=== PATIENT | female | born 1980 | race Caucasian/White ===

== ENCOUNTER 2016-04-25 07:03 | Emergency (ER) | payer OTHER ==
[~2016-04-25] VITALS: Ht 157.5 cm; Wt 97.5 kg
[~2016-04-25 07:03] MED LIST: CEFP250T2 PO; KETO75CA PO; NITR100C44 PO
--- OUTSIDE RECORDS SUMMARY | 2016-04-25 07:09 | XMS REPORT | Continuity of Care Document ---
Author Author [facility] Organization [facility] Address Unknown Phone Unavailable Allergies Active Description Code Type Severity Reaction Onset Reported/Identified Relationship to Patient Clinical Status Yes No Known Drug Allergies [id number] Drug Allergy Unknown N/ A 07/14/2014 Medications Problems Date Dx Coded Attending Type Code Diagnosis Diagnosed By 07/14/2014 VALERIE MARIEE DO Ot 599.0 URIN TRACT INFECTION NOS 07/14/2014 VALERIE MARIEE DO Ot 620.2 OVARIAN CYST NEC/NOS 07/14/2014 VALERIE MARIEE DO Ot 625.9 FEM GENITAL SYMPTOMS NOS 06/07/2015 THA STANTNO NATURAL GAS TECHNICIAN Ot R06.00 06/07/2015 THA STANTON NATURAL GAS TECHNICIAN Ot R06.2 06/08/2015 THA STANTON NATURAL GAS TECHNICIAN Ot R06.00 06/08/2015 THA STANTON NATURAL GAS TECHNICIAN Ot R06.2 07/21/2015 THA STANTON NATURAL GAS TECHNICIAN Ot R06.00 DYSPNEA, UNSPECIFIED 07/21/2015 THA STANTON NATURAL GAS TECHNICIAN Ot R06.2 WHEEZING 04/25/2016 THA STANTON NATURAL GAS TECHNICIAN Ot R06.00 DYSPNEA, UNSPECIFIED 04/25/2016 THA STANTON NATURAL GAS TECHNICIAN Ot R06.2 WHEEZING 04/25/2016 THA STANTON NATURAL GAS TECHNICIAN Ot R06.00 DYSPNEA, UNSPECIFIED 04/25/2016 THA STANTON NATURAL GAS TECHNICIAN Ot R06.2 WHEEZING Procedures Results Encounters ACCT No. Visit Date/Time Discharge Status Pt. Type Provider Facility Loc./Unit Complaint [id number] 07/14/2014 17:59:00 2014 23:25:00 DIS Emergency VALERIE MARIEE DO [facility] ER L SIDE PAIN [id number] 04/25/2016 07:05:00 ACT Emergency KELVIN BRUNSON MD [facility] ER BACK PAIN [id number] 06/07/2015 06:49:00 ACT Outpatient THA STANTON APRN [facility] RT WHEEZING,DYSPHAGIA [id number] 05/15/2015 16:07:00 ACT Outpatient THA STANTON APRN [facility] RAD DYSPNEA,WHEEZING
[2016-04-25] MEDS ORDERED: COLE625T9 PO (07:20)
[2016-04-25] MEDS ORDERED: METF1000 PO (07:20)
[2016-04-25] MEDS ORDERED: TEMA15CA6 PO (07:20)
[2016-04-25] MEDS ORDERED: BIRTH CONTROL (07:20)
[2016-04-25] MEDS ORDERED: OMEP20TA33 PO (07:20)
[2016-04-25] MEDS ORDERED: PROP80CA4 PO (07:20)
--- NOTE | 2016-04-25 07:39 | ED Back Pain ---
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 CC OF LOW BACK PAIN BETWEEN HER HIPS, STATES NO HX OF BACK PAIN. 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 She states that it is bilateral lower but right greater than left. Denies bowel or bladder incontinence, weakness when walking or numbness between her legs. Timing/Duration: 4-6 Hours Severity: Moderate Pain/Injury Location: Back Radiation: Buttocks (right hip.) Associated Symptoms: muscle spasmsNo weakness, No numbness in legs/feet, No tingling in legs/feet, No sensory/motor loss, lower back painNo loss of bladder control, No loss of bowel control Allergies and Home Medications Allergies Coded Allergies: No Known Drug Allergies (Unverified , 07/14/14) Home Medications (Reported) Colesevelam HCl 625 Mg Tablet 1,250 MG PO BID (Reported) Metformin HCl 1,000 Mg Tablet 1,000 MG PO BID (Reported) Omeprazole Magnesium 20 Mg Tablet.dr 20 MG PO DAILY (Reported) Propranolol HCl 80 Mg Cap.sa.24h 80 MG PO DAILY (Reported) Temazepam 15 Mg Capsule 15 MG PO HS (Reported) Constitutional: see HPINo chills, No fever Respiratory: no symptoms reported Cardiovascular: no symptoms reported Gastrointestinal: no symptoms reported Genitourinary: no symptoms reported Musculoskeletal: see HPI Psychiatric/Neurological: See HPI Past Zkzzolw-Hkfwqz-Kdmyyl Hx Patient Social History Alcohol Use: Rarely Uses Recreational Drug Use: No Smoking Status: Never a Smoker 2nd Hand Smoke Exposure: No Recent Foreign Travel: No Contact w/Someone Who Travel: No Recent Infectious Disease Expo: No Recent Hopitalizations: No Immunizations Up To Date Date of Influenza Vaccine: Dec 20, 2015 Seasonal Allergies Seasonal Allergies: No Surgeries HX Surgeries: Yes (CSection, Tonsillectomy, Gall Bladder, DENTAL) Surgeries: Section, Gallbladder, Tonsillectomy Respiratory Hx Respiratory Disorders: No Cardiovascular Hx Cardiac Disorders: No Neurological Hx Neurological Disorders: No Reproductive System : No (SPOTTING, JUST STARTED CONTROL) Genitourinary Hx Genitourinary Disorders: No Gastrointestinal Hx Gastrointestinal Disorders: Yes Gastrointestinal Disorders: Gall Bladder Disease Musculoskeletal Hx Musculoskeletal Disorders: No Endocrine Hx Endocrine Disorders: No HEENT HX ENT Disorders: No Cancer Hx Cancer: No Psychosocial Hx Psychiatric Problems: No Integumentary HX Skin/Integumentary Disorder: No Blood Transfusions Hx Blood Disorders: No Reviewed Nursing Assessment Reviewed/Agree w Nursing PMH: Yes Family Medical History Significant Family History: No Pertinent Family Hx Physical Exam Vital Signs Vital Sign - Last 12Hours 04/25/16 07:09 Temp 97.5 Pulse 74 Resp 20 B/P 128/73 Pulse Ox 98 O2 Delivery Room Air Capillary Refill : Less Than 3 Seconds General Appearance: No Apparent Distress WD/WN Cardiovascular: Regular Rate, Rhythm No Murmur Respiratory: Lungs Clear Normal Breath Sounds Back: Muscle SpasmNo Vertebral Tenderness, Other (tenderness at the region of the right SI joint with muscle spasm noted along the lateral aspect of the low lumbar spine on the right.) Neurologic/Psychiatric: Alert Oriented x3 Skin: Normal Color Warm/Dry Progress/Results/Core Measures Results/Orders Vital Signs/I&O Vital Sign - Last 12Hours 04/25/16 07:09 Temp 97.5 Pulse 74 Resp 20 B/P 128/73 Pulse Ox 98 O2 Delivery Room Air Blood Pressure Mean: 91 Progress Note : Progress Note Seen and evaluated. No indication for x-ray currently. Patient is already taking ibuprofen. Prescription will be given. Follow-up with occupational health. Discharged home with return precautions. Patient verbalize understanding instructions and agreement with plan. Departure Impression Impression: Primary Impression: Back strain Qualified Code: S39.012A - Strain of muscle, fascia and tendon of lower back, initial encounter Disposition: 01 HOME, SELF-CARE Condition: Stable Departure-Patient Inst. Decision time for Depature: 07:38 Referrals: NICK SMITH DO (PCP/Family) Primary Care Physician Patient Instructions: Lumbar Muscle Strain (DC), Low Back Pain (DC) Add. Discharge Instructions: All discharge instructions reviewed with patient and/or family. Voiced understanding. You may take ibuprofen 800 mg every 8 hours as needed for pain. You may take Tylenol 1000 mg every 8 hours as needed for pain. Follow-up with occupational health at 8 a.m. today. Take other medication as prescribed. Return for worse pain, fever, weakness, numbness between your legs, difficulty with walking or going to the bathroom or other concerns as needed. Scripts Cyclobenzaprine HCl 10 Mg Ylinte02 Mg PO Q8H PRN SPASMS #15 TAB Prov:KELVIN BRUNSON MD 04/25/16 KELVIN BRUNSON MD Apr 25, 2016 07:39
[2016-04-25] MEDS ORDERED: CYCL10TA9 PO (07:40)
[2016-04-25 07:42] VITALS: BP 128/73
== END 2016-04-25 07:42 | disposition home or self-care (01) ==
LOC: EDUNIT# 07:03 → ER 07:05
DX: S39.012A Strain of muscle, fascia and tendon of lower back, initial encounter (principal); X50.0XXA Overexertion from strenuous movement or load, initial encounter; Y93.F2 Activity, caregiving, lifting; Y92.129 Unspecified place in nursing home as the place of occurrence of the external cause; Y99.0 Civilian activity done for income or pay
CPT/HCPCS: 99281

== ENCOUNTER → 2019-03-18 | Outpatient (CLI) | payer OTHER ==
[~2019-03-18] MED LIST changes: +BIRTH CONTROL; +COLE625T9 PO; +CYCL10TA9 PO; +METF-399 PO; +OMEP20TA33 PO; +PROP80CA4 PO; +TEMA15CA6 PO
== END ==
LOC: LAB 14:43
PROVIDERS: ATTEND Family Medicine
DX: Z13.1 Encounter for screening for diabetes mellitus (principal); E03.9 Hypothyroidism, unspecified
CPT/HCPCS: 36415; 83036; 84443

== ENCOUNTER 2020-12-02 10:16 | Emergency (ER) | payer OTHER ==
[~2020-12-02] VITALS: Ht 157 cm; Wt 86.0 kg
[2020-12-02 10:30] VITALS: BP 133/91
--- NOTE | 2020-12-02 10:58 | ED EENT ---
History of Present Illness General Chief Complaint: Nasal Problems Stated Complaint: CONSTANT NOSEBLEED Source: patient Exam Limitations: no limitations History of Present Illness Date Seen by Provider: Dec 02, 2020 Time Seen by Provider: 10:45 Initial Comments Patient is a 40-year-old female who presents to the emergency room with a spontaneous nosebleed while she was in the shower at about 930 this morning. Patient states the blood was "pouring" out of her right nare. She states she packed it with gauze and it was bleeding so briskly that she had blood coming out of the left side and down her throat as well. She relates a history of a nosebleed similar to this that bled for "for 5 hours" about 4 months ago. Then a couple of weeks ago also had a similar instance. Did not seek medical attention at that time. Patient reports no trauma. No recent illnesses. She is not on blood thinners. She denies the use of ibuprofen but occasionally takes Excedrin. No recent rashes, easy bruising. No chest pain, shortness of breath nausea or vomiting. No blood in her stools no blood in her urine. She sees Dr. Bryon Frazier is her primary care physician recently underwent an endoscopy and was diagnosed with H. pylori and recently finished treatment for that. Currently the patient has her right nare packed with some gauze bleeding appears to be controlled. No posterior blood is noted. Denies headache, visual changes. All other review of systems reviewed and negative except as stated. Timing/Duration: abrupt Location: nose (right side) Prearrival Treatment: nasal packing Associated Symptoms: denies symptoms Allergies and Home Medications Allergies Coded Allergies: No Known Drug Allergies (Unverified , 07/14/14) Patient Home Medication List Home Medication List Reviewed: Yes Colesevelam HCl (Welchol) 625 Mg Tablet, 1,250 MG PO BID, (Reported) Entered as Reported by: LOULOU LOGAN on 04/25/16 0720 Cyclobenzaprine HCl (Cyclobenzaprine HCl) 10 Mg Tablet, 10 MG PO Q8H PRN for SPASMS Prescribed by: KELVIN BRUNSON on 04/25/16 0740 Metformin HCl (Metformin HCl) 1,000 Mg Tablet, 1,000 MG PO BID, (Reported) Entered as Reported by: LOULOU LOGAN on 04/25/16 0720 Omeprazole Magnesium (Prilosec Otc) 20 Mg Tablet.dr, 20 MG PO DAILY, (Reported) Entered as Reported by: LOULOU LOGAN on 04/25/16719 Propranolol HCl (Propranolol HCl ER) 80 Mg Cap.sa.24h, 80 MG PO DAILY, (Reported) Entered as Reported by: LOULOU LOGAN on 04/25/16719 Temazepam (Restoril) 15 Mg Capsule, 15 MG PO HS, (Reported) Entered as Reported by: LOULOU LOGAN on 04/25/16719 [ Control] , (Reported) Entered as Reported by: LOULOU LOGAN on 04/25/16719 Review of Systems Review of Systems Constitutional: see HPI Eyes: No Symptoms Reported Ears: No Symptoms Reported Nose: epistaxis (right sided) Mouth: no symptoms reported Throat: no symptoms reported Respiratory: no symptoms reported Cardiovascular: no symptoms reported Gastrointestinal: no symptoms reported Musculoskeletal: no symptoms reported Skin: no symptoms reported Neurological: No Symptoms Reported All Other Systems Reviewed Negative Unless Noted: Yes Past Zwmdoty-Ycncxh-Ddtrwj Hx Seasonal Allergies Seasonal Allergies: No Past Medical History Section, Gallbladder, Tonsillectomy Gall Bladder Disease Family Medical History No Pertinent Family Hx Physical Exam Vital Signs Vital Signs - First Documented 12/02/20 10:30 Temp 35.9 Pulse 80 Resp 16 B/P (MAP) 133/91 (105) Pulse Ox 99 O2 Delivery Room Air Height, Weight, BMI Height: 5'2" Weight: 215lbs. oz. 97.325893rt; 39.32 BMI Method:Stated General Appearance: WD/WN, no apparent distress Eyes: bilateral eye normal inspection, bilateral eye PERRL, bilateral eye EOMI Ears: bilateral ear auricle normal, bilateral ear canal normal, bilateral ear TM normal Nose: other (gauze packed right nare with bleeding controlled) Mouth/Throat: normal mouth inspection, pharynx normal (scant blood noted in the psterior pharynx. no active bleeding observed.) Neck: normal inspection Cardiovascular: regular rate, rhythm Respiratory: lungs clear, normal breath sounds, no respiratory distress Gastrointestinal: normal bowel sounds, non tender, soft Neurologic/Psychiatric: alert, normal mood/affect, oriented x 3 Skin: normal color, warm/dry Progress/Results/Core Measures Results/Orders Lab Results Laboratory Tests Test 12/02/20 11:40 Range/Units White Blood Count 8.4 4.3-11.0 10^3/uL Red Blood Count 4.18 3.80-5.11 10^6/uL Hemoglobin 13.0 11.5-16.0 g/dL Hematocrit 38 35-52 % Mean Corpuscular Volume 92 80-99 fL Mean Corpuscular Hemoglobin 31 25-34 pg Mean Corpuscular Hemoglobin Concent 34 32-36 g/dL Red Cell Distribution Width 12.6 10.0-14.5 % Platelet Count 297 130-400 10^3/uL Mean Platelet Volume 9.1 9.0-12.2 fL Immature Granulocyte % (Auto) 0 % Neutrophils (%) (Auto) 65 42-75 % Lymphocytes (%) (Auto) 23 12-44 % Monocytes (%) (Auto) 7 0-12 % Eosinophils (%) (Auto) 5 0-10 % Basophils (%) (Auto) 1 0-10 % Neutrophils # (Auto) 5.5 1.8-7.8 10^3/uL Lymphocytes # (Auto) 1.9 1.0-4.0 10^3/uL Monocytes # (Auto) 0.6 0.0-1.0 10^3/uL Eosinophils # (Auto) 0.4 H 0.0-0.3 10^3/uL Basophils # (Auto) 0.0 0.0-0.1 10^3/uL Immature Granulocyte # (Auto) 0.0 0.0-0.1 10^3/uL Prothrombin Time 12.7 12.2-14.7 SEC INR Comment 0.9 0.8-1.4 Activated Partial Thromboplast Time 29 24-35 SEC My Orders Orders - YISEL PIMENTEL MD Cbc With Automated Diff (12/02/20 10:58) Protime With Inr (12/02/20 10:58) Partial Thromboplastin Time (12/02/20 10:58) Oxymetazoline 0.05% Nasal [place] (Afrin 0. (12/02/20 21:00) Silver Nitrate Applicator (Silver Nitrat (12/02/20 11:00) Oxymetazoline 0.05% Nasal [place] (Afrin 0. (12/02/20 11:10) Medications Given in ED Current Medications Medications Dose Ordered Sig/Ayan Route Start Time Stop Time Status Last Admin Dose Admin Silver Nitrate 1 pkt ONCE ONCE TP 12/02/20 11:00 12/02/20 11:01 DC 12/02/20 11:27 1 PKT Vital Signs/I&O 12/02/20 10:30 Temp 35.9 Pulse 80 Resp 16 B/P (MAP) 133/91 (105) Pulse Ox 99 O2 Delivery Room Air Progress Progress Note : Time: 11:14 Progress Note Rechecked patient, she had pulled the gauze packing out of her nose along with a small clot. Bleeding seems to be controlled. Posterior pharynx reexamined, no evidence of active bleeding. Went ahead and prophylactically use 2 squirts of Afrin in the right nare. Vital signs are stable. Awaiting blood counts 1214 Patient continues to have hemostasis/no nasal bleeding. Vital signs are stable. Labs have been reviewed and are within normal limits. No other indications for acute intervention. Recommended follow-up with Dr. Frazier as well as Dr. Alvarez with ENT. Patient verbalized understanding, is comfortable with plan of care. All questions are sought and answered. Patient is stable for discharge. Departure Impression Primary Impression: Epistaxis Disposition: HOME, SELF-CARE Condition: Stable Departure-Patient Inst. Decision time for Depature: 12:15 Referrals: ZACHARIAH ALVAREZ MD, CHAD C MD (PCP/Family) Primary Care Physician Patient Instructions: Nosebleeds (DC) Add. Discharge Instructions: Keep the nasal mucosa moist with nasal saline. Try not to rub or irritate the nose. If you have a return of bleeding, use a little Afrin, 2 squirts on the side that is bleeding. Hold direct pressure for 15 minutes. If you continue to have nosebleed after that please come back to the emergency room for reevaluation. Please follow-up with your primary care provider. I have also given you contact information for Dr. Alvarez, the ENT surgeon on-call. YISEL PIMENTEL MD Dec 02, 2020 10:58
[2020-12-02] MEDS ORDERED: SILVER NITRATE APPLICATOR 1 PKT TP ONE (11:00)
[2020-12-02] MEDS ORDERED: OXYMETAZOLINE (AFRIN) 0.05% NA 30 ML BTL ONE (11:10)
[2020-12-02 11:45] LABS: BASOPHILS % (AUTO) 1 % (0-10); EOSINOPHILS # (AUTO) 0.4 10^3/uL (0.0-0.3); EOSINOPHILS % (AUTO) 5 % (0-10); HEMATOCRIT 38 % (35-52); LYMPHOCYTES # (AUTO) 1.9 10^3/uL (1.0-4.0); LYMPHOCYTES % (AUTO) 23 % (12-44); MEAN CORPUSCULAR HEMOGLOBIN 31 pg (25-34); MEAN CORPUSCULAR HGB CONC 34 g/dL (32-36); MEAN CORPUSCULAR VOLUME 92 fL (80-99); MEAN PLATELET VOLUME 9.1 fL (9.0-12.2); MONOCYTES # (AUTO) 0.6 10^3/uL (0.0-1.0); MONOCYTES % (AUTO) 7 % (0-12); NEUTROPHILS # (AUTO) 5.5 10^3/uL (1.8-7.8); NEUTROPHILS % (AUTO) 65 % (42-75); PLATELET COUNT 297 10^3/uL (130-400); WHITE BLOOD COUNT 8.4 10^3/uL (4.3-11.0)
[2020-12-02 11:56] LABS: INR 0.9 (0.8-1.4); PROTHROMBIN TIME PATIENT 12.7 SEC (12.2-14.7)
[2020-12-02] MEDS ORDERED: OXYMETAZOLINE (AFRIN) 0.05% NA 30 ML BTL SCH (21:00)
== END 2020-12-02 12:18 | disposition home or self-care (01) ==
LOC: EDUNIT# 10:16 → ER 10:20
DX: R04.0 Epistaxis (principal)
CPT/HCPCS: 36415; 85025; 85610; 85730; 99282

== ENCOUNTER → 2021-01-17 | Outpatient (CLI) | payer OTHER ==
--- NOTE | 2021-01-17 11:34 | Diagnostic Imaging Report ---
PROCEDURE: Pelvic comp/transvaginal sonogram. TECHNIQUE: Complete transabdominal and transvaginal pelvic ultrasound was performed. In addition, limited pelvic Doppler was performed. INDICATION: Secondary amenorrhea. FINDINGS: The uterus is anteverted measuring 9.8 x 5.1 x 5.7 cm. The endometrium is 9 mm in thickness. There appears to be a possible fibroid in the anterior uterus which produces slight displacement of the endometrium. This measures 3.4 x 2.3 cm. The right ovary measures 2.7 x 1.8 x 2.5 cm and the left ovary measures 3.3 x 2.5 x 3.0 cm. There is a probable hemorrhagic cyst involving the left ovary measuring approximately 2.4 cm in size. There is blood flow to both ovaries. No free fluid is detected. IMPRESSION: 1. Uterine fibroid. 2. Probable hemorrhagic cyst of the left ovary. No other abnormality is seen. Dictated by: Dictated on workstation # [id number]
== END ==
LOC: RAD 10:00
PROVIDERS: ATTEND Obstetrics & Gynecology
DX: D25.9 Leiomyoma of uterus, unspecified (principal)
CPT/HCPCS: 76830; 76856

== ENCOUNTER → 2022-05-14 | Outpatient (CLI) | payer OTHER ==
[~2022-05-14] MED LIST changes: +COLE625T30 PO; -COLE625T9 PO; +CYCL10TA25 PO; -CYCL10TA9 PO
--- NOTE | 2022-05-14 13:52 | Diagnostic Imaging Report ---
PROCEDURE: Pelvic comp/transvaginal sonogram. TECHNIQUE: Complete transabdominal and transvaginal pelvic ultrasound was performed. In addition, limited pelvic Doppler was performed. INDICATION: Uterine leiomyoma. Correlation is made with prior study from 01/17/2021. Uterus is anteverted measuring 7.9 x 4.1 x 5.7 cm. Endometrium is 7 mm in thickness. Probable fibroid anteriorly is again noted, measuring 2.5 x 2.0 x 2.2 cm. This compares with 3.4 x 2.3 cm on prior exam. No additional fibroids are seen. Right ovary measures 2.7 x 1.6 x 1.9 cm and left ovary measures 2.4 x 2.2 x 1.8 cm. Both ovaries contain small follicles. There is blood flow to both ovaries. No free fluid is seen. IMPRESSION: Uterine fibroid, measuring slightly smaller on today's study when compared with examination from 01/17/2021. Dictated by: Dictated on workstation # [id number]
== END ==
LOC: RAD 12:01
PROVIDERS: ATTEND Obstetrics & Gynecology
DX: D25.9 Leiomyoma of uterus, unspecified (principal)
CPT/HCPCS: 76830; 76856

== ENCOUNTER 2022-06-10 09:59 | Outpatient (RCR) | payer OTHER ==
[~2022-06-10] VITALS: Wt 86.0 kg
[2022-06-10] MEDS ORDERED: IRON SUCROSE 200 MG/10 ML (VENOFER) VIAL IV ONE (10:09)
[2022-06-10 10:10] VITALS: BP 102/72
[2022-06-10] MEDS ORDERED: IRON SUCROSE 200 MG/10 ML (VENOFER) VIAL IV SCH (10:45)
== END 2022-06-14 | disposition home or self-care (01) ==
LOC: SDC 09:59
PROVIDERS: ATTEND Family Medicine
DX: D50.8 Other iron deficiency anemias (principal)
CPT/HCPCS: 96365

== ENCOUNTER 2022-07-01 11:16 | Outpatient (RCR) | payer OTHER ==
[2022-06-17 12:00] VITALS: BP 112/75
[2022-06-24 09:50] VITALS: BP 110/64
[2022-06-24] MEDS: IRON SUCROSE 200 MG/10 ML (VENOFER) VIAL IV ONE ×2 (10:03→10:13)
[2022-06-24] MEDS: IRON SUCROSE 200 MG/10 ML (VENOFER) VIAL IV SCH (10:13)
[~2022-07-01] VITALS: Wt 86.0 kg
[2022-07-01 11:15] VITALS: BP 120/77
[~2022-07-01 11:16] MED LIST changes: +IRON SUCROSE 200 MG/10 ML (VENOFER) VIAL IV ONE
[2022-07-01] MEDS: IRON SUCROSE 200 MG/10 ML (VENOFER) VIAL IV SCH (11:28)
== END 2022-07-14 | disposition home or self-care (01) ==
LOC: SDC 11:16
PROVIDERS: ATTEND Family Medicine
DX: D50.8 Other iron deficiency anemias (principal); R53.83 Other fatigue
CPT/HCPCS: 96365

== ENCOUNTER 2022-08-07 22:32 | Emergency (ER) | payer OTHER ==
[~2022-08-07] VITALS: Ht 157.5 cm; Wt 83.9 kg
[~2022-08-07 22:32] MED LIST changes: -IRON SUCROSE 200 MG/10 ML (VENOFER) VIAL IV ONE
[2022-08-07 22:46] VITALS: BP 116/75
[2022-08-07] MEDS ORDERED: ONDANSETRON 4 MG/2 ML (SDV) Z0FRAN ONE (23:56)
[2022-08-07] MEDS ORDERED: LACTATED RINGERS 1,000 ML IV ONE (23:56)
[2022-08-07] MEDS ORDERED: KETOROLAC 30 MG/ML VIAL ONE (23:56)
[2022-08-08] MEDS ORDERED: RX-ONDANSETRON 4 MG ODT (ZOFRAN) PPK #4 ONE (02:22)
[2022-08-08] MEDS ORDERED: cefTRIAXone PRE-MIX 50 ML IV ONE ×2 (02:22→07:45)
--- NOTE | 2022-08-08 07:23 | Diagnostic Imaging Report ---
PROCEDURE: CT abdomen and pelvis with contrast, rule out appendicitis. TECHNIQUE: Multiple contiguous axial images were obtained through the abdomen and pelvis after the administration of intravenous contrast. All CT scans use one or more of the following dose optimizing techniques: automated exposure control, MA and/or KvP adjustment based on patient size and exam type or iterative reconstruction. INDICATION: Right upper quadrant abdominal pain COMPARISON: 07/14/2014 FINDINGS: There is no focal hepatic, pancreatic, adrenal gland or splenic abnormality. Kidneys are also unremarkable apart from subcentimeter cyst in the upper pole of left kidney. Gallbladder is surgically absent without biliary ductal dilatation. There is no free fluid within the abdomen or pelvis. There is fecalization of distal ileal contents. The appendix has a normal appearance. Unopacified bladder is unremarkable in its incompletely distended state. IMPRESSION: Feces in the distal ileum indicate stasis without evidence of acute abnormality in the abdomen or pelvis. Dictated by: Dictated on workstation # [id number]
[2022-08-08] MEDS ORDERED: ONDANSETRON 4 MG/2 ML (SDV) Z0FRAN IVP ONE (07:45)
[2022-08-08] MEDS ORDERED: KETOROLAC 30 MG/ML VIAL IVP ONE (07:45)
[2022-08-08] MEDS ORDERED: RX-ONDANSETRON 4 MG ODT (ZOFRAN) PPK #4 PO STA (07:45)
[2022-08-08 07:54] LABS: ALBUMIN 4.3 GM/DL (3.2-4.5); BILIRUBIN,TOTAL 0.3 MG/DL (0.1-1.0); CALCIUM 9.7 MG/DL (8.5-10.1); CREATININE SERUM 1.22 MG/DL (0.60-1.30); POTASSIUM 3.3 MMOL/L (3.6-5.0); TOTAL PROTEIN 7.4 GM/DL (6.4-8.2)
[2022-08-08 07:56] LABS: HEMATOCRIT 36 % (35-52); HEMOGLOBIN 12.6 g/dL (11.5-16.0); MEAN CORPUSCULAR HEMOGLOBIN 32 pg (25-34); MEAN CORPUSCULAR HGB CONC 35 g/dL (32-36); MEAN CORPUSCULAR VOLUME 91 fL (80-99); MEAN PLATELET VOLUME 9.7 fL (9.0-12.2); PLATELET COUNT 376 10^3/uL (130-400); WHITE BLOOD COUNT 9.7 10^3/uL (4.3-11.0)
[2022-08-08 08:28] LABS: CLARITY,URINE SL CLOUDY; COLOR,URINE YELLOW
[2022-08-08 08:29] LABS: BILIRUBIN,URINE 1+ (NEGATIVE); GLUCOSE, URINE (UA) NEGATIVE (NEGATIVE); KETONES,URINE TRACE (NEGATIVE); LEUKOCYTE ESTERASE ,URINE NEGATIVE (NEGATIVE); NITRITE,URINE NEGATIVE (NEGATIVE); PROTEIN,URINE TRACE (NEGATIVE)
[2022-08-08 08:30] LABS: BACTERIA,URINE MODERATE /HPF; WBC,URINE RARE /HPF
--- NOTE | 2022-10-14 13:56 | ED Abdominal Pain ---
General Chief Complaint: Abdominal/GI Problems Stated Complaint: ABDOMINAL PAIN Nursing Triage Note: PT AMB TO RM 10 W C/O RUQ PAIN AND NAUSEA X2 DAYS. PT REPORTS PAIN RADIATES TO BACK, PT A&OX4. Source of Information: Patient History of Present Illness Date Seen by Provider: August 07, 2022 Time Seen by Provider: 23:30 Initial Comments PT ARRIVES VIA POV FROM HOME C/O RIGHT UPPER QUADRANT PAIN SINCE LAST PM PAIN IS CONSTANT AND WAXES AND WANES IN INTENSITY PAIN IS WORSE WITH BUMPS IN THE ROAD, SUDDEN MOVEMENTS, LAYING STRETCHED OUT NO RADIATION OF PAIN C/O NAUSEA, FOR THE LAST COUPLE OF DAYS.NO VOMITING HAS HAD DECREASED APPETITE AND DECREASED INTAKE TODAY. ATE AT [facility] TODAY--HALF OF A SANDWICH FROM [employer]. HAD A LARGE BM AT 0330--WAS HARD THEN LOOSE NO URINARY SYMPTOMS AND VOIDING A NORMAL AMOUNT NO FEVER HAS NOT TAKEN ANYTHING FOR PAIN/SYMPTOMS LMP --ENDED LAST WEEK. NORMAL. RECENTLY INCREASED DOSE OF OCP'S DUE TO FIBROIDS AND SPOTTING BETWEEN PERIODS PT HAS HAD PRIOR CHOLECYSTECTOMY 18 YEARS AGO AND A SHE HAS HISTORY OF GERD AND HIATAL HERNIA AND IS ON PRILOSEC AND PEPCID DAILY SHE HAS PCOS AND FIBROIDS SHE IS ON METFORMIN AND HAS BEEN ON WAGOVI FOR THE LAST 3 MONTHS FOR WEIGHT LOSS NO SMOKING, ALCOHOL, OR DRUG USE PCP: DR YENNI KOTHARI Allergies and Home Medications Allergies Coded Allergies: No Known Drug Allergies (Unverified , 07/14/14) Patient Home Medication List Home Medication List Reviewed: Yes Colesevelam HCl (Welchol) 625 Mg Tablet, 1,250 MG PO BID, (Reported) Entered as Reported by: LOULOU LOGAN on 04/25/16 0720 Cyclobenzaprine HCl (Cyclobenzaprine HCl) 10 Mg Tablet, 10 MG PO Q8H PRN for SPASMS Prescribed by: KELVIN BRUNSON on 04/25/16 0740 Metformin HCl (Metformin HCl) 1,000 Mg Tablet, 1,000 MG PO BID, (Reported) Entered as Reported by: LOULOU LOGAN on 04/25/16 0720 Omeprazole Magnesium (Prilosec Otc) 20 Mg Tablet.dr, 20 MG PO DAILY, (Reported) Entered as Reported by: LOULOU LOGAN on 04/25/16 0720 Propranolol HCl (Propranolol HCl ER) 80 Mg Cap.sa.24h, 80 MG PO DAILY, (Reported) Entered as Reported by: LOULOU LOGAN on 04/25/16719 Temazepam (Restoril) 15 Mg Capsule, 15 MG PO HS, (Reported) Entered as Reported by: LOULOU LOGAN on 04/25/16719 [ Control] , (Reported) Entered as Reported by: LOULOU LOGAN on 04/25/16719 Review of Systems Review of Systems Constitutional: no symptoms reported Respiratory: No Symptoms Reported Cardiovascular: No Symptoms Reported Gastrointestinal: See HPI, Abdominal Pain; Denies Constipated, Denies Diarrhea; Nausea, Poor Appetite; Denies Rectal Bleeding, Denies Vomiting Genitourinary: No Symptoms Reported Musculoskeletal: no symptoms reported Skin: no symptoms reported Psychiatric/Neurological: No Symptoms Reported Endocrine: No Symptoms Reported Hematologic/Lymphatic: No Symptoms Reported Past Koqjkfs-Agffjc-Dapcuu Hx Patient Social History Tobacco Use?: No Use of E-Cig and/or Vaping dev: No Substance use?: No Alcohol Use?: No Immunizations Up To Date Influenza Vaccine Up-to-Date: Yes; Up-to-Date First/Initial COVID19 Vaccinat: 2020 Second COVID19 Vaccination Manuel: 2020 Third COVID19 Vaccination Date: 2021 COVID19 Vaccine Security Professional: Electrochaea Seasonal Allergies Seasonal Allergies: No Past Medical History Surgeries: Yes Section, Gallbladder, Tonsillectomy Respiratory: No Cardiac: No Neurological: Yes Headaches /Migraines Reproductive Disorders: Yes (FIBROIDS) Female Reproductive Disorders: Menstrual Problems, Ovarian Cyst, Polycystic Ovarian Dis Genitourinary: No Gastrointestinal: Yes (S/P FOREST) Gastroesophageal Reflux, Hiatal Hernia, Gall Bladder Disease Musculoskeletal: No Endocrine: Yes (OBESITY) HEENT: No Cancer: No Psychosocial: No Integumentary: No Blood Disorders: No Family Medical History No Pertinent Family Hx Physical Exam Vital Signs Capillary Refill : Less Than 3 Seconds Height/Weight/BMI Height: 5'2" Weight: 215lbs. oz. 97.270383wr; 33.00 BMI Method:Stated General Appearance: WD/WN, no apparent distress HEENT: PERRL/EOMI; No scleral icterus (R), No scleral icterus (L) Neck: normal inspection Respiratory: normal breath sounds, no respiratory distress, no accessory muscle use Cardiovascular: regular rate, rhythm, no murmur Gastrointestinal: normal bowel sounds, soft, no organomegaly, no pulsatile mass; No distended; guarding, rebound (EQUIVOCAL), tenderness (MARKED TENDERNESS IN RUQ, EPIGASTRIC AREA AND RIGHT FLANK); No hernia, No mass Extremities: normal inspection, normal capillary refill Back: no vertebral tenderness, CVA tenderness (R) Neurologic/Psychiatric: chemical analytical sampler II-XII nml as tested, no motor/sensory deficits, alert, normal mood/affect, oriented x 3 Skin: normal color, warm/dry; No rash Progress/Results/Core Measures Results/Orders Lab Results Laboratory Tests Test 08/07/22 22:33 08/07/22 22:58 08/08/22 01:04 08/08/22 22:58 Range/Units Lab Scanned Report Referred Lab Report [id number] White Blood Count 9.7 4.3-11.0 10^3/uL Red Blood Count 4.00 3.80-5.11 10^6/uL Hemoglobin 12.6 11.5-16.0 g/dL Hematocrit 36 35-52 % Mean Corpuscular Volume 91 80-99 fL Mean Corpuscular Hemoglobin 32 25-34 pg Mean Corpuscular Hemoglobin Concent 35 32-36 g/dL Red Cell Distribution Width 12.3 10.0-14.5 % Platelet Count 376 130-400 10^3/uL Mean Platelet Volume 9.7 9.0-12.2 fL Sodium Level 141 135-145 MMOL/L Potassium Level 3.3 L 3.6-5.0 MMOL/L Chloride Level 108 H 98-107 MMOL/L Carbon Dioxide Level 19 L 21-32 MMOL/L Anion Gap 14 5-14 MMOL/L Blood Urea Nitrogen 12 7-18 MG/DL Creatinine 1.22 0.60-1.30 MG/DL Estimat Glomerular Filtration Rate 57 BUN/Creatinine Ratio 10 Glucose Level 83 70-105 MG/DL Calcium Level 9.7 8.5-10.1 MG/DL Corrected Calcium 9.5 8.5-10.1 MG/DL Total Bilirubin 0.3 0.1-1.0 MG/DL Aspartate Amino Transf (AST/SGOT) 22 5-34 U/L Alanine Aminotransferase (ALT/SGPT) 40 0-55 U/L Alkaline Phosphatase 68 40-136 U/L C-Reactive Protein High Sensitivity 1.74 H 0.00-0.50 MG/DL Total Protein 7.4 6.4-8.2 GM/DL Albumin 4.3 3.2-4.5 GM/DL Amylase Level 63 25-125 U/L Lipase 26 8-78 U/L Urine Color YELLOW Urine Clarity SL CLOUDY Urine pH 6.0 5-9 Urine Specific [place] >=1.030 1.016-1.022 Urine Protein TRACE H NEGATIVE Urine Glucose (UA) NEGATIVE NEGATIVE Urine Ketones TRACE H NEGATIVE Urine Nitrite NEGATIVE NEGATIVE Urine Bilirubin 1+ H NEGATIVE Urine Urobilinogen 0.2 < = 1.0 MG/DL Urine Leukocyte Esterase NEGATIVE NEGATIVE Urine RBC (Auto) NEGATIVE NEGATIVE Urine RBC NONE /HPF Urine WBC RARE /HPF Urine Squamous Epithelial Cells 2-5 /HPF Urine Crystals NONE /LPF Urine Bacteria MODERATE H /HPF Urine Casts NONE /LPF Urine Mucus SMALL H /LPF Urine Culture Indicated YES Serum Test, Qualitative NEGATIVE NEGATIVE Micro Results Microbiology 08/08/22 Urine Culture - Final, Complete NO GROWTH My Orders Orders - SHAN TORRES DO Ondansetron Injection (Zofran Injectio (08/07/22 23:56) Ketorolac Injection (Toradol Injection) (08/07/22 23:56) Lactated Ringers (Lr 1000 Ml Iv Solution (08/07/22 23:56) Rx-Ondansetron Po (Rx-Zofran Po) (08/08/22 02:22) Ceftriaxone Pre-Mix (Rocephin Pre-Mix) (08/08/22 02:22) Ct Abd/Pelv W (Appendicitis) (08/08/22 01:10) Ondansetron Injection (Zofran Injectio (08/08/22 07:45) Ketorolac Injection (Toradol Injection) (08/08/22 07:45) Ceftriaxone Pre-Mix (Rocephin Pre-Mix) (08/08/22 07:45) Rx-Ondansetron Po (Rx-Zofran Po) (08/08/22 07:45) Amylase (08/07/22 22:58) Comprehensive Metabolic Panel (08/07/22 22:58) Hs C Reactive Protein (08/07/22 22:58) Lipase (08/07/22 22:58) Cbc No Diff (08/07/22 22:58) Hcg,Qualitative Serum (08/08/22 22:58) Iv Infusion <= First Hr Ed (08/07/22 ) Blood Pressure Mean: 89 Progress Progress Note : Progress Note GIVEN: -IV FLUIDS -TORADOL -ZOFRAN -ROCEPHIN SYMPTOMS MUCH IMPROVED WITH MEDICATIONS VITALS STABLE NO DETERIORATION IN PT'S CONDITION DURING ER STAY DISCUSSED TEST RESULTS, ANTICIPATED COURSE, SYMPTOMATIC TREATMENT, MEDICATIONS, NEED FOR FOLLOW UP AND RETURN PRECAUTIONS COMPUTERS DOWN DURING PT'S STAY Diagnostic Imaging Comments CT ABDOMEN/PELVIS--PER [facility] VIA FAX AT 0213 -NO ACUTE PROCESS Reviewed: Reviewed by Me Departure Impression Primary Impression: Abdominal pain Additional Impression: UTI (urinary tract infection) Disposition: 01 HOME, SELF-CARE Condition: Improved Departure-Patient Inst. Decision time for Depature: 02:20 Referrals: YENNI KOTHARI MD (PCP) Primary Care Physician Patient Instructions: Urinary Tract Infection, Adult (DC), Severe Abdominal Pain, Adult (DC) Add. Discharge Instructions: SEE HAND WRITTEN INSTRUCTIONS AND PRESCRIPTIONS All discharge instructions reviewed with patient and/or family. Voiced understanding. SHAN TORRES DO Oct 14, 2022 13:56
== END 2022-08-08 02:48 | disposition home or self-care (01) ==
LOC: EDUNIT# 22:32 → ER 22:33
DX: N39.0 Urinary tract infection, site not specified (principal); K21.9 Gastro-esophageal reflux disease without esophagitis; K44.9 Diaphragmatic hernia without obstruction or gangrene; E66.9 Obesity, unspecified; Z68.33 Body mass index [BMI] 33.0-33.9, adult; Z79.899 Other long term (current) drug therapy
CPT/HCPCS: 36415; 74177; 80053; 81000; 82150; 83690; 84703; 85027; 86141; 87088; 96361; 96365; 96375

== ENCOUNTER → 2022-10-17 | Outpatient (CLI) | payer OTHER ==
--- NOTE | 2022-10-17 17:30 | Diagnostic Imaging Report ---
INDICATION: Routine screening. COMPARISON: No prior mammograms are available for comparison. This a baseline study. EXAMINATION: 2D and 3D bilateral screening mammography was performed with CAD. The current study was also evaluated with a Computer Aided Detection (CAD) system. FINDINGS: Scattered fibroglandular densities are identified, bilaterally. No mass is identified. No malignant-appearing microcalcification is seen. There are scattered benign calcifications. Axillae are unremarkable. IMPRESSION: No mammographic feature suspicious for malignancy is identified. ACR BI-RADS Category 2: Benign findings. Result letter will be mailed to the patient. Note: At least 10% of breast cancer is not imaged by mammography. Dictated by: Dictated on workstation # [id number]
== END ==
LOC: RAD 15:10
PROVIDERS: ATTEND Nurse Practitioner Women's Health
DX: Z12.31 Encounter for screening mammogram for malignant neoplasm of breast (principal); D25.9 Leiomyoma of uterus, unspecified
CPT/HCPCS: 77063; 77067

== ENCOUNTER → 2022-11-11 | Outpatient (CLI) | payer OTHER ==
--- NOTE | 2022-11-11 14:47 | Diagnostic Imaging Report ---
PROCEDURE: Pelvic comp/transvaginal sonogram. TECHNIQUE: Complete transabdominal and transvaginal pelvic ultrasound was performed. In addition, limited pelvic Doppler was performed. INDICATION: Follow-up leiomyoma. COMPARISON: Correlation is made with prior ultrasound from 05/14/2022. FINDINGS: Uterus is anteverted measuring 8.8 x 4.4 x 4.7 cm. Anterior fibroid, similar in size at 2.6 x 2.3 x 2.1 cm. Endometrium is 3 mm in thickness. There is a cervical nabothian cyst. Right ovary measures 2.1 x 1.7 x 1.9 cm and left ovary measures 2.3 x 1.6 x 2.0 cm. Both ovaries contain small follicles. There is blood flow to both ovaries. No adnexal mass or free fluid is detected. IMPRESSION: Overall, stable uterine fibroid when compared with examination from 05/14/2022. Dictated by: Dictated on workstation # [id number]
== END ==
LOC: RAD 12:00
PROVIDERS: ATTEND Nurse Practitioner Women's Health
DX: D25.9 Leiomyoma of uterus, unspecified (principal)
CPT/HCPCS: 76830; 76856